=== PATIENT | female | born 1980 | race Caucasian/White ===

== ENCOUNTER 2018-05-20 08:01 | Emergency (ER) | payer BC, OTHER ==
[~2018-05-20] VITALS: Ht 157.5 cm; Wt 87.1 kg
[~2018-05-20 08:01] MED LIST: CONCERTA36 MG PO; HYDROXYZINE HCL25 MG PO
--- NOTE | 2018-05-20 08:57 | Diagnostic Imaging Report ---
PROCEDURE:CXR 2 VIEW - HOPD COMPARISON:None. INDICATIONS:Chest pain FINDINGS:Heart and lungs are normal. No pulmonary nodules, consolidation or mass. There is no evidence of a pneumothorax. Costophrenic angles are clear. Regional osseous structures appear unremarkable. CONCLUSION:Normal chest. Surendra Omalley D.O. Dictated by: Surendra Omalley D.O. on 05/20/2018 at 9:04 Electronically approved by: Surendra Omalley D.O. on 05/20/2018 at 9:04
[2018-05-20] MEDS ORDERED: FAMOTIDINE 20 MG/2 ML VIAL IV ONE (09:15)
[2018-05-20] MEDS ORDERED: ONDANSETRON HCL INJ 2 MG/ML VIAL IV ONE (09:15)
== END 2018-05-20 10:00 | disposition home or self-care (01) ==
LOC: FSED 08:01
DX: R07.89 Other chest pain (principal); R06.00 Dyspnea, unspecified; R11.2 Nausea with vomiting, unspecified
CPT/HCPCS: 71046; 80048; 80076; 81003; 81025; 82553; 84484; 85025; 93005; 99284; J2405